=== PATIENT | male | born 1975 | race Caucasian/White ===

== ENCOUNTER 2024-04-07 12:55 | Emergency (ER) | payer OTHER, SELFPAY ==
[2024-04-07 12:58] VITALS: BP 123/76
[2024-04-07] MEDS: LIDOCAINE 4% PATCH 1 PATCH TOPICAL (14:26)
[2024-04-07] MEDS: VALIUM 5 MG PO (14:27)
--- NOTE | 2024-04-07 14:45 | ED.GENMED ---
History of Present Illness
General
Chief Complaint: Back Pain
Source: patient
Time Seen by Provider: 04/07/24 13:33
History of Present Illness
History of Present Illness:
49-year-old male with past medical history of a previous spontaneous pneumothorax presenting to the emergency department for evaluation of diffuse lower back pain that began about 2 days ago, gradually worsening during that time especially with any
type of movement or bending. Patient states that the symptoms started when he was bending over in the shower and felt sudden pain within the lower part of his back. Denies any history of similar. He states no relief with Advil, ice and/or heat.
He denies any fevers or infectious symptoms, saddle anesthesia, bowel or bladder incontinence, traumatic injuries, history of IV drug abuse, diabetes or cancer history. No other concerns at this time.
Past History
Past History
ED Past Medical History: Other (Spontaneous pneumothorax)
ED Past Surgical History: Other
Social History
Tobacco: Non-smoker
Alcohol: Occasional
Drug: None
Personal: Partner
Living: with family
Employment: Employed
Review of Systems
Review of Systems
All Other Systems: ROS reviewed and negative except as documented in HPI and ROS
Phy Exam
Physical Exam
Physical Exam:
GENERAL: Alert , in no apparent distress at rest but appears quite uncomfortable with movement
EYE: clear conjunctiva b/l
NECK: Supple
ENT: mmm.
ABDOMEN: Soft, without focal tenderness, no r/g, no cvat
BACK: limited ROM 2/2 pain, no focal tenderness, no midline bony tenderness, no rashes
NEUROLOGICAL: Alert and oriented, no focal neuro deficits. Patellar deep tendon reflexes intact and equal bilaterally, sensation grossly intact and equal to light touch bilateral lower extremities
SKIN: Warm and dry, skin intact.
MUSCULOSKELETAL: No edema, well perfused. EHL intact bilaterally
PSYCH: Normal and appropriate interaction.
Scores
Heart Failure Risk
Heart Failure Risk Score: Not Applicable
Heart Score for Chest Pain Patients
STEMI patient?: Not applicable
Withdrawal Assessment of Alcohol
Withdrawal Assessment Completed?: Not applicable
Course
Orders/Labs/Results
Orders:
Orders
04/07/24 14:19
Diazepam [Valium] 5 mg PO NOW STA
Lidocaine [Lidocaine 4% Patch] 1 patch TOPICAL NOW STA
Apply Lidocaine patch(s) to:: low back
CR Lumbar Spine Comp Min 4 Vw* Urgent
Comment:
Reason For Exam: low back pain
Vital Signs
Initial and Last Documented VS:
Initial Vital Signs
Temp Pulse Resp BP Pulse Ox
97.5 F 67 18 123/76 97
04/07/24 12:58 04/07/24 12:58 04/07/24 12:58 04/07/24 12:58 04/07/24 12:58
Last Documented Vital Signs
Temp Pulse Resp BP Pulse Ox
97.5 F 70 18 121/83 99
04/07/24 12:58 04/07/24 15:08 04/07/24 15:08 04/07/24 15:08 04/07/24 15:08
MDM/Problems Addressed
Differential Diagnosis Includes:
Lumbar strain, less concern for discontinuation or nerve impingement given lack of neurologic symptoms, no concern for cauda equina or neurogenic claudication, no concern for infectious etiology
MDM/Problems Addressed:
49-year-old male presenting the ER for evaluation of lower back pain that started after bending over while in the shower. Pain now is clearly spasmodic and worse with movement. Suspect strain is the most likely etiology. Will obtain a right for
further evaluation. Will continue treatment with anti-inflammatories, steroid, muscle relaxant and topical agents. Encouraged outpatient follow-up with orthopedics. Anticipate discharge home. Return precautions discussed
*Radiology
Radiology exam reviewed: preliminary read by ED provider (No acute fracture or malalignment)
*Pulse Oximetry
Patient hypoxic: no
*Critical Care Note
Total Time (30-74mins, 75-104mins- exclusive of procedures): Not Applicable
Patient Management
Escalation/DeEscalation of care consider admission/obs:
Patient stable for discharge home and outpatient management. Aware of return precautions to ER.
ED Attending Note
-
Portions of this chart may have been created with voice recognition software.� Occasional wrong word or��sound alike� substitutions may have occurred due to the inherent limitations of voice recognition software.
Discharge Plan
Departure
Patient Disposition: Home (Routine Discharge)
Date of Disposition: 04/07/24
Time of Disposition: 14:57
Patient with high blood pressure during this ER visit?: No
Discharge Problem:
Low back pain
Instructions: Low Back Pain (DC)
Prescriptions:
New
diazepam [Valium] 5 mg tablet
5 mg PO BID PRN (Reason: muscle spasm) Qty: 8 0RF
methylprednisolone [Medrol (Jimmy)] 4 mg tablets,dose pack
4 mg PO DIRECTED Qty: 21 0RF
Referrals:
Nura Sandoval MD [Active] - (Ortho - Please call for appointment)
UNKNOWN,PT [Family Provider] -
Interventions
Interventions:
*Risk Screen - Suicide Last Done: 04/07/24 12:58
*General Assessment Last Done: 04/07/24 13:11
*Neglect/Abuse Screening Last Done: 04/07/24 15:08
*ED COVID-19 Vaccine History Last Done: 04/07/24 13:11
*Nursing Disposition Last Done: 04/07/24 15:08
ED-Musculoskeletal Assessment Last Done: 04/07/24 13:11
Discharge Date and Time
Discharge Date/Time: 04/07/24 15:09
Print Language: MAORI
[2024-04-07 15:08] VITALS: BP 121/83
== END 2024-04-07 15:09 | disposition home or self-care (01) ==
LOC: EMR 12:55
PROVIDERS: EMERGENCY PHYSICIAN Student in an Organized Health Care Education/Training Program
DX: M54.50 Low back pain, unspecified (principal)
CPT/HCPCS: 99283; 72110